=== PATIENT | male | born 1960 | race Asian ===

== ENCOUNTER 2025-02-05 16:53 | Outpatient (CLI) | payer OTHER, SELFPAY ==
--- NOTE | ~2025-02-05 | XR_ITS ---
EXAMINATION: XR ankle LT min 3V, 02/05/2025 17:05 [employer] HISTORY: M25.472 - Effusion, left ankle COMPARISON: No comparisons available. Findings: Small probable osteochondral defect noted in the medial aspect of the talus measuring 3 x 4 mm, no additional fracture is identified. No significant degenerative changes. Soft tissues unremarkable. Impression: Probable small osteochondral fracture. Outpatient MRI is suggested Reviewed, dictated and finalized at location P. 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 Outpatient MRI is suggested
== END 2025-02-05 16:54 | disposition home or self-care (01) ==
PROVIDERS: PCP Family Medicine; Visit Provider Physician Assistant Medical
DX: M25.472 Effusion, left ankle (principal); M25.572 Pain in left ankle and joints of left foot
CPT/HCPCS: 73610